=== PATIENT | male | born 1985 | race African-American/Black ===

== ENCOUNTER 2019-04-23 13:11 | Emergency (ER) | payer MEDICAID ==
[~2019-04-23] VITALS: Ht 185.4 cm; Wt 68.2 kg
[2019-04-23 13:16] VITALS: BP 154/97
[2019-04-23] MEDS ORDERED: DOXYCYCLINE HYCLATE 100 MG CAPSULE PO ONE (14:45)
[2019-04-23] MEDS ORDERED: IBUPROFEN 400 MG TABLET PO ONE (14:45)
== END 2019-04-23 15:25 | disposition home or self-care (01) ==
LOC: EMS 13:13
DX: H92.03 Otalgia, bilateral (principal)